=== PATIENT | male | born 1970 | race Hispanic/Latino ===

== ENCOUNTER 2019-09-19 16:58 | Emergency (ER) | payer SELFPAY ==
[~2019-09-19] VITALS: Ht 170.2 cm; Wt 113.4 kg
[2019-09-19] MEDS ORDERED: VENTOLIN HFA18 GM PO (17:05)
[2019-09-19] MEDS ORDERED: TESSALON PERLE100 MG PO (17:05)
[2019-09-19] MEDS ORDERED: AZITHROMYCIN250 MG PO (17:05)
--- NOTE | 2019-09-19 17:20 | Emergency Department Note ---
History of Present Illnes History of Present Illness Chief Complaint: COVID PUI History of Present Illness This is a 49 year old male . Historian: Patient Arrival Mode: Car Allergy Specialist Required: No Onset (how long ago): week(s) Location: cough no sputums no fever Pos COVID test on 09/07 Radiation: Reports non-radiation Severity: mild Duration (how long): week(s) Timing of current episode: constant Progression: improving Context: Reports recent illness Relieving factors: none Exacerbating factors: none Associated symptoms: Reports cough; Denies diaphoresis, Denies fever/chills, Denies headaches, Denies malaise, Denies nausea/vomiting, Denies shortness of breath Treatments prior to arrival: none Past Medical/Family History Physician Review I have reviewed the patient's past medical and family history. Any updates have been documented here. Past Medical History Recent Fever: No Clinical Suspicion of Infectio: Yes New/Unexplained Change in Ment: No Past Medical History: None Past Surgical History: None Social History Smoking Cessation: Never Smoker Alcohol Use: None Any Illegal Drug Use: No Review of Systems Review of Systems Constitutional: Reports as per HPI; Denies chills, Denies diaphoresis, Denies fever Respiratory: Reports cough Review of other systems: All other systems negative Physical Exam Related Data Vital signs reviewed: Yes Physical Exam CONSTITUTIONAL Constitutional: Present morbidly obese HENT HENT: Present normocephalic EYES Eyes: Reports conjunctivae normal NECK Neck: Present supple PULMONARY Pulmonary: Present breath sounds normal CARDIOVASCULAR Cardiovascular: Present regular rhythm GASTROINTESTINAL Abdominal: Present soft GENITOURINARY SKIN Skin: Present warm MUSCULOSKELETAL Musculoskeletal: Absent edema NEUROLOGICAL Neurological: Present alert PSYCHOLOGICAL Psychological: Present mood/affect normal Results Imaging Imaging results reviewed: Yes Impressions EXAMINATION: CXR 1 [facility] INDICATION: cough covid pos september 07 COMPARISON: None FINDINGS: AP view TUBES and LINES: None. . LUNGS/PLEURA: Lungs are well inflated. There are bilateral faint opacities could represent multifocal pneumonia or edema.. There is no pleural effusion or pneumothorax. HEART AND MEDIASTINUM: The cardiomediastinal silhouette is unremarkable. BONES AND SOFT TISSUES: No acute osseous lesion. Soft tissues are unremarkable. UPPER ABDOMEN: No free air under the diaphragm. IMPRESSION: Bilateral faint opacities could represent multifocal pneumonia or pulmonary edema. Signed by: Conor White MD on 09/19/2019 6:17 PM Assessment & Plan Medical Decision Making MDM Bronchitis, PNA, PE, Abscess Assessment & Plan Final Impression: (1) COVID-19 (2) Bronchitis (3) Pneumonia Depart Disposition: HOME, SELF-residential Meds Active Scripts Albuterol Sulfate (VENTOLIN HFA) 18 Gm Hfa.aer.ad, 2 INH PO QID PRN for SHORTNESS OF BREATH for 7 Days, #1 INH Prov:OSCAR GUILLERMO MD 09/19/19 Benzonatate (TESSALON PERLE) 100 Mg Capsule, 100 MG PO TID PRN for cough for 5 Days, #15 Prov:OSCAR GUILLERMO MD 09/19/19 Azithromycin (Z-AMALIA) 250 Mg Tablet, 250 MG PO UD, #1 UDPKT Z-Pack Prov:OSCAR GUILLERMO MD 09/19/19 OSCAR GUILLERMO MD Sep 19, 2019 17:20
--- NOTE | 2019-09-19 18:20 | Diagnostic Imaging Report ---
EXAMINATION: CXR 1 [facility] INDICATION: cough covid pos september 07 COMPARISON: None FINDINGS: AP view TUBES and LINES: None. . LUNGS/PLEURA: Lungs are well inflated. There are bilateral faint opacities could represent multifocal pneumonia or edema.. There is no pleural effusion or pneumothorax. HEART AND MEDIASTINUM: The cardiomediastinal silhouette is unremarkable. BONES AND SOFT TISSUES: No acute osseous lesion. Soft tissues are unremarkable. UPPER ABDOMEN: No free air under the diaphragm. IMPRESSION: Bilateral faint opacities could represent multifocal pneumonia or pulmonary edema. Signed by: Conor White MD on 09/19/2019 6:17 PM
[2019-09-19 19:06] VITALS: BP 127/83
== END 2019-09-19 18:48 | disposition home or self-care (01) ==
LOC: FSED 17:20
DX: U07.1 COVID-19 (principal); J18.9 Pneumonia, unspecified organism; J40 Bronchitis, not specified as acute or chronic; R05 Cough
CPT/HCPCS: 71045; 99283

== ENCOUNTER 2022-03-27 00:06 | Emergency (ER) | payer SELFPAY ==
[~2022-03-27] VITALS: Ht 170.2 cm; Wt 103.4 kg
[~2022-03-27 00:06] MED LIST: AZITHROMYCIN250 MG PO; TESSALON PERLE100 MG PO; VENTOLIN HFA18 GM PO
[2022-03-27] MEDS ORDERED: HYDROXYZINE HCL25 MG PO (02:14)
[2022-03-27 02:25] VITALS: BP 139/91
== END 2022-03-27 02:25 | disposition home or self-care (01) ==
LOC: FSED 00:12
DX: R07.9 Chest pain, unspecified (principal); F43.0 Acute stress reaction; H91.93 Unspecified hearing loss, bilateral
CPT/HCPCS: 80053; 82553; 84484; 85025; 93005; 99283